=== PATIENT | male | born 1970 | race African-American/Black ===

== ENCOUNTER → 2019-06-15 | Outpatient (CLI) | payer BC, OTHER ==
[~2019-06-15] MED LIST: LISINOPRIL-HCT1 EAC1 PO; NAPROSYN500 MG PO; PROTONIX40 M4 PO; ZPAK PO
== END ==
LOC: NUC 09:38
DX: K82.8 Other specified diseases of gallbladder (principal)

== ENCOUNTER 2019-08-12 05:07 | Emergency (ER) | payer BC, OTHER ==
[~2019-08-12] VITALS: Ht 180.3 cm; Wt 165.1 kg
[2019-08-12] MEDS ORDERED: NAPROSYN500 MG PO (05:15)
[2019-08-12] MEDS ORDERED: LISINOPRIL-HCT1 EAC1 PO (05:15)
[2019-08-12 05:53] LABS: ABSOLUTE NEUTROPHILS 3.2 thou/uL (1.4-8.2); BASOPHILS 0.9 % (0.0-2.0); EOSINOPHILS 2.8 % (0.0-3.0); HEMATOCRIT 40.9 % (42.0-52.0); LYMPHOCYTES 30.1 % (24.0-44.0); MCH 29.1 pg (26.0-34.0); MCHC 31.7 g/dL (28.0-37.0); MCV 91.8 fL (80.0-100.0); MONOCYTES 8.7 % (1.0-8.0); PLATELET COUNT 262 thou/uL (150-400); POLYS 57.5 % (36.0-66.0); RBC 4.45 mil/uL (4.50-6.00); RDW 14.4 % (10.5-14.5); WBC 5.6 thou/uL (4.0-11.0)
[2019-08-12 05:57] LABS: URINE BILIRUBIN 1+ (Negative); URINE BLOOD NEGATIVE (Negative); URINE CLARITY CLEAR; URINE COLOR YELLOW; URINE GLUCOSE-RANDOM* NEGATIVE (Negative); URINE KETONES NEGATIVE (Negative); URINE LEUKOCYTES-REFLEX NEGATIVE (Negative); URINE NITRITE-REFLEX NEGATIVE (Negative); URINE PROTEIN (DIPSTICK) 2+ (Negative); URINE SPECIFIC GRAVITY 1.025 (1.005-1.035)
[2019-08-12 06:05] LABS: ANION GAP 10 mmol/L (7-16); BUN 13 mg/dL (7-18); CALCIUM 9.5 mg/dL (8.5-10.1); CHLORIDE 106 mmol/L (98-107); CO2 28 mmol/L (21-32); CREATININE 1.1 mg/dL (0.7-1.3); GLUCOSE 105 mg/dL (74-106); POTASSIUM 4.1 mmol/L (3.5-5.1); SODIUM 144 mmol/L (136-145)
[2019-08-12 06:15] LABS: BACTERIA-REFLEX None Seen /HPF (None Seen); CASTS None Seen /LPF (None Seen); CRYSTALS None Seen /LPF (None Seen); MUCUS 4-6 Moderate strn/LPF (None Seen); SQUAMOUS None Seen /LPF (0-3); URINE RBC None Seen /HPF (0-2); URINE WBC-REFLEX None Seen /HPF (0-5)
[2019-08-12 06:16] LABS: ALBUMIN 3.9 g/dL (3.4-5.0); LIPASE 69 U/L (73-393); SGOT 25 U/L (15-37); SGPT 33 U/L (30-65); TOTAL BILIRUBIN 1.6 mg/dL (<0.1-1.0); TOTAL PROTEIN 7.8 g/dL (6.4-8.2); TROPONIN-I <0.06 ng/mL (<0.06)
[2019-08-12] MEDS ORDERED: PROTONIX40 M4 PO (08:45)
[2019-08-12] MEDS ORDERED: ZPAK PO (08:45)
[2019-08-12 09:13] VITALS: BP 134/94
--- NOTE | 2019-08-12 12:58 | EKG ---
[address] [place] [address] ELECTROCARDIOGRAM REPORT Name: LUCA CAROLINA Room #: DEP Edison#: [id number] Admission: 08/12/19 Attend Phys: Discharge: 08/12/19 Date of : 72 Report #: [id number] THIS REPORT FOR: //name// [facility] ED Test Date: 2019-08-12 Test Time: 05:39:02 Pat Name: LUCA CAROLINA Department: Room: Gender: M [employer]: SUBHASH : 1970 Requested By: Sumeet Ignacio Order Number: [id number] MD: Brad Stevenson Measurements Intervals Benjamin Rate: 96 P: 28 MA: 162 QRS: -4 QRSD: 94 T: 83 QT: 378 QTc: 478 Interpretive Statements Sinus rhythm Borderline prolonged QT interval Baseline wander in lead(s) V1,V2 No previous ECG available for comparison Electronically Signed On 08-12-2019 12:57:49 [employer] by Brad Stevenson [email or web address] <ELECTRONICALLY SIGNED> By: Brad Stevenson MD, [facility] 08/12/19 [id number] Brad Stevenson MD, FACC /EPI
== END 2019-08-12 09:21 | disposition home or self-care (01) ==
LOC: ER 05:07
PROVIDERS: Emergency Medicine
DX: J18.9 Pneumonia, unspecified organism (principal); R10.32 Left lower quadrant pain; R10.12 Left upper quadrant pain; I10 Essential (primary) hypertension; Z88.6 Allergy status to analgesic agent

== ENCOUNTER → 2019-10-12 | Outpatient (CLI) | payer BC | LOC: SJCVCIMAG 08:21 | DX: I08.1 Rheumatic disorders of both mitral and tricuspid valves (principal); I11.9 Hypertensive heart disease without heart failure ==

== ENCOUNTER → 2020-04-11 | Outpatient (CLI) | payer OTHER | LOC: ULTRA 07:49 | PROVIDERS: ATTEND Family Medicine | DX: R10.11 Right upper quadrant pain (principal) ==